=== PATIENT | female | born 1940 | race Caucasian/White ===

== ENCOUNTER → 2017-06-08 | Outpatient (CLI) | payer MEDICARE, BC ==
[~2017-06-08] MED LIST: HCTZ 25MG25 MG PO; PHENTERMINE PO; PRAVACHOL 40MG40 MG PO
== END ==
LOC: COL.RAD 07:20
DX: H05.20 Unspecified exophthalmos (principal); H02.409 Unspecified ptosis of unspecified eyelid

== ENCOUNTER 2019-05-25 11:15 | Emergency (ER) | payer MEDICARE, BC ==
[~2019-05-25] VITALS: Ht 162.6 cm; Wt 109.1 kg
[2019-05-25 11:28] VITALS: BP 124/59; TEMP 99.1
[2019-05-25] MEDS ORDERED: MEDROL 4MG DOSPA4 MG PO (11:34)
[2019-05-25] MEDS ORDERED: ATARAX 25MG25 MG/TAB PO ×2 (11:34→12:28)
[2019-05-25] MEDS ORDERED: WELLBUTRIN XL150 MG PO (11:34)
[2019-05-25] MEDS ORDERED: LIPITOR 40MG TA40 MG PO (12:00)
[2019-05-25] MEDS ORDERED: CALCIUM CARB W/1 TA1 PO (12:01)
[2019-05-25] MEDS ORDERED: LEVOXYL0.125 MG PO (12:02)
[2019-05-25] MEDS ORDERED: DESYREL 50MG50 MG PO (12:02)
[2019-05-25] MEDS ORDERED: AVAPRO TAB150 MG/TAB PO (12:02)
[2019-05-25 12:50] VITALS: PULSE 82
== END 2019-05-25 12:51 | disposition home or self-care (01) ==
LOC: COL.ER 11:15
DX: L50.9 Urticaria, unspecified (principal); F32.9 Major depressive disorder, single episode, unspecified; E78.5 Hyperlipidemia, unspecified; I10 Essential (primary) hypertension

== ENCOUNTER 2019-12-13 14:15 | Outpatient (RCR) | payer MEDICARE, BC ==
[~2019-12-13 14:15] MED LIST changes: +ATARAX 25MG25 MG/TAB PO; +AVAPRO TAB150 MG/TAB PO; +CALCIUM CARB W/1 TA1 PO; +DESYREL 50MG50 MG PO; +LEVOXYL0.125 MG PO; +LIPITOR 40MG TA40 MG PO; +MEDROL 4MG DOSPA4 MG PO; +WELLBUTRIN XL150 MG PO
== END 2020-01-26 | disposition home or self-care (01) ==
LOC: MKS.ESL.PT
DX: I89.0 Lymphedema, not elsewhere classified (principal)

== ENCOUNTER 2021-08-30 16:23 | Inpatient (IN) | payer MEDICARE, BC ==
[~2021-08-30] VITALS: Ht 160.1 cm; Wt 108.9 kg
[~2021-08-30 16:23] MED LIST changes: -ASPIRIN E.C. 8181 MG PO; -CIPRO 500MG TA500 MG PO; -CYMBALTA 30MG30 MG PO; -D3-5050000 IU PO; -DESYREL 100MG100 MG PO; -FLAGYL500 MG PO; -MOTRIN 200200 MG/TAB PO; -SYNTHROID 0.10.15 MG PO; -ZOFRAN 4MG T4 MG/TAB PO
[2021-08-30 17:00] VITALS: BP 118/61; PULSE 88; TEMP 98.7
--- NOTE | 2021-08-30 17:02 | NUR ---
admitted per WC to room 342, assisted into bed, full assessment completed, see interventions for further info, Dr Guerrero was in to see patient, will prep for surgery
[2021-08-30] MEDS ORDERED: SYNTHROID 0.10.15 MG PO (17:11)
[2021-08-30] MEDS ORDERED: ASPIRIN E.C. 8181 MG PO (17:13)
[2021-08-30] MEDS ORDERED: CYMBALTA 30MG30 MG PO (17:14)
[2021-08-30] MEDS ORDERED: MOTRIN 200200 MG/TAB PO (17:14)
[2021-08-30] MEDS ORDERED: AVAPRO TAB150 MG/TAB PO (17:15)
[2021-08-30] MEDS ORDERED: DESYREL 100MG100 MG PO (17:16)
[2021-08-30] MEDS ORDERED: ZOFRAN 4MG T4 MG/TAB PO (17:16)
[2021-08-30] MEDS ORDERED: D3-5050000 IU PO (17:17)
--- NOTE | 2021-08-30 17:35 | NUR ---
attempted to start IV without success, OR staff here to take patient to surgery, notified STORE SALES CONSULTANT of no IV
[2021-08-30 18:05] VITALS: BP 118/61; PULSE 88; TEMP 98.7
--- NOTE | 2021-08-30 18:47 | NUR ---
bedside shift report given to ASHLEE Clay
--- NOTE | 2021-08-30 22:59 | NUR ---
Pt to floor, room 342, at 2210. Pt A&Ox3, daughter at the beside, left shortly after pt arrival to room. Pt L central line, white port is being utilized well. Pt assessed, 3x sites with bandaids were observed, as well as midline dressing and JERRELL drain. Pt has not complaints of pain at this time, call light within reach.
[2021-08-31] VITALS (8 sets, daily range): BP systolic 93–123; BP diastolic 44–98; PULSE 76–85; TEMP 97.8–98.5
[2021-08-31 06:47] LABS: HEMOGLOBIN 11.4 g/dl (12.5-16.0); MEAN CELL VOLUME 84 fl (80.0-100.0); MEAN CORPUSCULAR HEMOGLOBIN 27 pg (27-31); MEAN CORPUSCULAR HGB CONC 32 g/dl (33.0-37.0); MEAN PLATELET VOLUME 10.8 fl (7.4-10.4); PLATELET COUNT 237 K/mm3 (130-400); RED BLOOD COUNT 4.31 M/mm3 (4.10-5.30); REDCELL DISTRIBUTION WIDTH-CV 14.6 % (11.5-14.5)
[2021-08-31 06:57] LABS: HEMATOCRIT 36.2 % (37.0-47.0)
[2021-08-31 07:02] LABS: CALCIUM 8.7 mg/dL (8.4-10.2); CREATININE, serum 0.7 mg/dL (0.57-1.11); POTASSIUM 4.2 mmol/L (3.5-4.5)
[2021-08-31 08:21] LABS: BAND 5 % (0-10); HYPOCHROMIA 1+; LYMPHOCYTE 3 % (20.0-51.0); NEUTROPHILS 89 % (42.0-75.2); PLATELET ESTIMATE NORMAL (NORMAL)
--- NOTE | 2021-08-31 09:02 | NUR ---
PT A&O X3, HOB ELEVATED. PT STATES THAT SHE IS HAVING SOME PAIN BUT DENIES NAUSEA, TOLERATING CLEAR LIQUIDS WELL. IVF INFUSING INTO TRIPLE LUMEN IN PT'S LEFT NECK. BANDAIDS ET GAUZE DRESSING CDI, JERERLL DRAIN WITH MINIMAL DRAINAGE, IS SEROUSANGUINEOUS. SHEARER CATHETER DRAINING DEPENDENTLY, URINE IS LIGHT DINESH ET CLEAR. SCDs ON BILATERAL LEGS. PT DENIES NEEDS. CALL LIGHT WITHIN REACH.
--- NOTE | 2021-08-31 09:49 | NUR ---
Children'S Lunchroom Supervisor met with patient to discuss discharge planning. Patient lives alone in [place] and reports her , Santino lives at [facility]. Patient states her daughter, Tg lives here in [place] and is a nurse for the [employer]. Patient sees Dr. Fraire for primary care and obtains medications from [facility] with no difficulties. Patient does not use any DME and reports independence with ADLS. Patient denies any current home health use. Patient does not have Advance Directives and is not interested in completing DPOA-HC form at this time, but will think about it. Patient plans to return home at time of discharge. Discharge Plan: Home
--- NOTE | 2021-08-31 12:45 | NUR ---
PT HAS BEEN ASSISTED TO BR ET BACK WITH 1 ASSIST, IS OCCASIONALLY UNSTEADY ET USES RAILS IN BR TO WALK. PT IS ABLE TO URINATE, IS DARK YELLOW ET CLEAR. PT STATES THAT SHE IS SOMETIMES INCONTINENT @ BASELINE BUT IS NOT THIS TIME. PT ENCOURAGED TO DRINK WATER, VERBALIZES UNDERSTANDING. PT DENIES FURTHER NEEDS. CALL LIGHT WITHIN REACH.
--- NOTE | 2021-08-31 12:56 | NUR ---
Donna: No advent preference Situation: Surface Miner stopped by on rounds Background: PT was very sleepy. Assessment: Family is bringing up a phone edge sander and some glasses for PT Recommendation: outreach professional will follow up as needed
--- NOTE | 2021-08-31 18:55 | NUR ---
PT SITTING UP IN BED, TALKING ON HER CELL PHONE, HAS FINISHED EATING DINNER. IVF INFUSING. JERRELL DRAIN TO BULB SUCTION, DRAINAGE IS SEROUSANGUINEOUS. PT HAS BEEN UP TO AMBULATE IN [place] X[place] THIS AFTERNOON, IS AGREEABLE TO WALK AGAIN FOR CONVERTIBLE SOFA BEDSPRING TESTER. GAIT IS STEADY ET PT HAS TOLERATED, HAS SOME SOB WITH ACTIVITY BUT RECOVERS QUICKLY. REPORT GIVEN TO NIGHT ASHLEE POLANCO.
[2021-09-01 00:32] VITALS: BP 124/47; PULSE 92; TEMP 98.5
[2021-09-01 05:06] VITALS: BP 119/55; PULSE 88; TEMP 99
[2021-09-01 06:26] LABS: HEMATOCRIT 38.9 % (37.0-47.0); HEMOGLOBIN 12.3 g/dl (12.5-16.0); MEAN CELL VOLUME 84 fl (80.0-100.0); MEAN CORPUSCULAR HEMOGLOBIN 27 pg (27-31); MEAN CORPUSCULAR HGB CONC 32 g/dl (33.0-37.0); MEAN PLATELET VOLUME 11.6 fl (7.4-10.4); PLATELET COUNT 297 K/mm3 (130-400); RED BLOOD COUNT 4.64 M/mm3 (4.10-5.30); REDCELL DISTRIBUTION WIDTH-CV 14.9 % (11.5-14.5)
[2021-09-01 07:02] VITALS: BP 124/67; PULSE 83; TEMP 98.4
[2021-09-01 07:15] LABS: BAND 6 % (0-10); LYMPHOCYTE 2 % (20.0-51.0); NEUTROPHILS 90 % (42.0-75.2); PLATELET ESTIMATE NORMAL (NORMAL)
--- NOTE | 2021-09-01 07:26 | NUR ---
IVF HAS BEEN DCED, TRIPLE LUMEN TO PT'S LEFT NECK SALINE LOCKED. PT HAS BEEN HAVING INTERMITTENT INCONTINENCE, STATES THAT SHE DOES THAT @ HOME ALSO BUT THAT IT HAS BEEN MORE FREQUENT OVERNIGHT. PT IS ALSO HAVING SOME INTERMITTENT NAUSEA THAT SHE STATES IS EXACERBATES BY BURPING, IS ALSO HAVING FLATULENCE. PT RATES ABDOMINAL PAIN @ A 2. PT REFUSING BREAKFAST @ THIS TIME. JERRELL DRAIN TO PT'S MEDIAL ABDOMEN DISCONTINUED, HAS HAD MINIMAL SEROUS DRAINAGE WITH A BLOOD CLOT SEEN IN THE BULB. GAUZE ET TEGADERM DRESSING HAS BEEN APPLIED TO SITE. PT DENIES NEEDS. RESTS IN BED WITH EYES CLOSED, RESPIRATIONS UNLABORED. CALL LIGHT WITHIN REACH.
--- NOTE | 2021-09-01 09:24 | NUR ---
PT SLEEPING IN BED, IV FLAGYL INFUSING THROUGH LEFT IJ TRIPLE LUMEN. PT'S GRANDDAUGHTER HAS BEEN @ BEDSIDE, QUESTIONS ANSWERED PER PT REQUEST. PT STATES THAT SHE IS STILL NAUSEOUS BUT PAIN IS MINIMAL.
--- NOTE | 2021-09-01 10:14 | NUR ---
PT SLEEPS INTERMITTENTLY, STATES THAT SHE IS STILL HAVING NAUSEA BUT PAIN IS MINIMAL. ZOFRAN IV ADMINISTERED.
--- NOTE | 2021-09-01 11:02 | NUR ---
Faculty Neuropsychologist collaborated with RN about ordering PT/OT for patient.
[2021-09-01 11:13] VITALS: BP 150/63; PULSE 86; TEMP 98.4
--- NOTE | 2021-09-01 11:23 | NUR ---
PT'S PO MEDICATIONS GIVEN LATE R/T NAUSEA. PT STATES THAT NAUSEA HAS IMPROVED BUT NOT RESOLVED, IS NOT HUNGRY AT ALL. PT HAS NOT BEEN DRINKING A LOT, ENCOURAGED TO DRINK MORE, VERBALIZES UNDERSTANDING. PT STATES THE ICE CHIPS ARE EASIER TO TAKE IN THAN WATER, IS GIVEN FRESH ICE.
--- NOTE | 2021-09-01 12:15 | NUR ---
PT HAS NOT YET BEEN UP TO THE BR FOR THIS SHIFT. PT IS ASSISTED WITH SBA INTO BR ET IS ABLE TO URINATE. URINE IS DINESH ET CLEAR. DRESSING OVER PREVIOUS JERRELL DRAIN SITE IS SATURATED WITH SEROUS FLUID. GAUZE ET TEGADERM DRESSING IS REPLACED. PT ASSISTED BACK TO BED, BECOMES NAUSEOUS ET HAS A SMALL AMOUNT OF GREEN/BROWN EMESIS. PT'S GOWN ET LINENS CHANGED. HOB ELEVATED. PT REPORTS FLATULENCE. STATES THAT SHE IS ALSO BURPING FREQUENTLY.
--- NOTE | 2021-09-01 12:32 | NUR ---
DR. MCINTOSH NOTIFIED OF PT CONDITION. NEW VERBAL ORDERS RECEIVED TO KEEP PT ON CLEAR LIQUIDS FOR NOW ET TO RE-START IVF.
[2021-09-01 15:25] VITALS: BP 136/71; PULSE 88; TEMP 98
--- NOTE | 2021-09-01 15:50 | NUR ---
PT ALERT @ THIS TIME, FAMILY @ BEDSIDE. PT'S DAUGHTER STATES THAT PT HAS BEEN UP TO THE BR X1 WITH HER ET URINATED. IVF INFUSING BUT PT DOES NOT APPEAR TO HAVE HAD MUCH TO DRINK. PT STATES THAT SHE IS BEGINNING TO HAVE MORE ABDOMINAL PAIN, MORPHINE IV ADMINISTERED. THE GAUZE DRESSING OVER PT'S FORMER DRAIN SITE IS SATURATED WITH YELLOW SEROUS DRAINAGE. DRESSING IS CHANGED.
--- NOTE | 2021-09-01 19:10 | NUR ---
RECEIVED CHANGE OF SHIFT REPORT FROM DAY SHIFT RN.
[2021-09-01 20:41] VITALS: BP 137/53; PULSE 92; TEMP 98
--- NOTE | 2021-09-01 21:30 | NUR ---
DRSG TO PREV JERRELL DRAIN SITE CHANGED, SATURATED WITH SEROUS DRAINAGE, NO ODOR OBSERVED, NO ACTIVE DRAINAGE AT TIME OF DRSG CHANGE. NO REDNESS TO DRAIN SITE. APPLIED CLEAN/DRY [id number] WITH TEGADERM, PATIENT TOLERATED DRSG CHANGE WITH NO C/O PAIN OR DISCOMFORT.
--- NOTE | 2021-09-01 23:37 | NUR ---
PATIENT REPORTS SLIGHT URGE TO VOID BUT NO STRONG ENOUGH YET TO GET UP AND ATTEMPT TO VOID IN BATHROOM AT THIS TIME. STATES SHE WILL CALL FOR HELP WHEN SHE IS READY TO GET UP TO GO TO BATHROOM TO VOID. DENIES ANY OTHER NEEDS AT THIS TIME.
[2021-09-02] VITALS (7 sets, daily range): BP systolic 114–152; BP diastolic 52–83; PULSE 78–94; TEMP 97.8–98.5
--- NOTE | 2021-09-02 04:28 | NUR ---
DRSG CHANGE OF OLD JERRELL DRAIN SITE, ABOVE UMBILICUS, SATURATED WITH SEROUS NONODOROUS DRAINAGE WITH SCANT LIGHT PINK COLORING TO DRSG NEXT TO DRAIN SITE. PATIENT TOLERATED DRSG CHANGE, DENIES PAIN OR DISCOMFORT WITH PALPATION TO DRAIN SITE. FOLDED GAUZE (DOWN TO 2X2 SIZE) TO DRAIN SITE THEN COVERED WITH LARGE TEGADERM. NO OTHER NEEDS REPORTED.
--- NOTE | 2021-09-02 06:00 | NUR ---
OBSERVED SCD ON FOR MOST OF NIGHT, PATIENT REPORTING SCD "MADE ME HOT".
[2021-09-02 06:42] LABS: BASO # 0.1 K/mm3 (0.0-0.2); BASO % 0.3 % (0.0-2.0); EOS # 0.1 K/mm3 (0.0-0.7); EOS % 0.8 % (0.0-4.0); GRAN # 12.5 K/mm3 (1.4-6.5); GRAN % 83.9 % (42.2-75.2); HEMOGLOBIN 11.3 g/dl (12.5-16.0); LYMPH # 1.2 K/mm3 (1.2-3.4); LYMPH % 7.9 % (20.0-51.0); MEAN CELL VOLUME 87 fl (80.0-100.0); MEAN CORPUSCULAR HEMOGLOBIN 27 pg (27-31); MEAN CORPUSCULAR HGB CONC 31 g/dl (33.0-37.0); MEAN PLATELET VOLUME 10.9 fl (7.4-10.4); MONO % 6.6 % (1.7-9.3); PLATELET COUNT 285 K/mm3 (130-400); RED BLOOD COUNT 4.21 M/mm3 (4.10-5.30); REDCELL DISTRIBUTION WIDTH-CV 14.8 % (11.5-14.5)
[2021-09-02 06:45] LABS: HEMATOCRIT 36.8 % (37.0-47.0)
[2021-09-02 06:58] LABS: CALCIUM 8.2 mg/dL (8.4-10.2); CREATININE, serum 0.66 mg/dL (0.57-1.11)
--- NOTE | 2021-09-02 07:01 | NUR ---
CHANGE OF SHIFT REPORT GIVEN TO DAY SHIFT RNRACHEL.
--- NOTE | 2021-09-02 09:43 | NUR ---
PT STATES THAT SHE IS FEELING IMPROVED TODAY, DENYING PAIN OR NAUSEA @ THIS TIME. PT WORKED WITH THERAPY THIS MORNING. GAUZE DRESSING OVER PREVIOUS JERRELL SITE HAS BEEN CHANGED X2, SATURATED WITH YELLOW CLEAR DRAINAGE EACH TIME. DRAINAGE HAS NO ODOR. IVF INFUSING. PT REQUESTS ONLY ORANGE JUICE, DENIES HUNGER.
--- NOTE | 2021-09-02 13:28 | NUR ---
CLARIFIED WITH PT THAT SHE HAS TAKEN TYLENOL IN THE PAST WITH NO PROBLEMS OR ADVERSE REACTION. PT STATES SHE HAS HAD PROBLEMS WITH PERCOCET WHICH IS THE REASON FOR TYLENOL BEING LISTED AN ALLERGY.
--- NOTE | 2021-09-02 17:42 | NUR ---
PT CURRENTLY ON PHONE WITH KITCHEN, IS ORDERING FRUIT TO EAT, STILL DOES NOT HAVE MUCH OF AN APPETITE. PT HAS BEEN UP TO AMBULATE IN [facility] ET USE BR. GAUZE DRESSING OVER PRIOR DRAIN SITE IS SATURATED WITH SEROUS YELLOW DRAINAGE. NEW DRESSING APPLIED. SKIN SURROUNDING SITE IS PINK BUT PT DENIES ANY PAIN OR NAUSEA. RESPIRATIONS UNLABORED ON RA. CALL LIGHT WITHIN REACH.
--- NOTE | 2021-09-02 19:00 | NUR ---
RECEIVED CHANGE OF SHIFT REPORT FROM DAY SHIFT RN.
--- NOTE | 2021-09-02 20:30 | NUR ---
CHANGE DRSG TO OLD JERRELL DRAIN SITE, ABOVE UMBILICUS, EDGES CLEAR, NO REDNESS AROUND DRAIN SITE. OLD DRSG SATURATED WITH SEROUS DRAINAGE, NO FOUL ODOR OBSERVED, PATIENT TOLERATED DRSG CHANGE WITH NO REPORTED DISCOMFORT. APPLIED DRY FOLDED 4X4 (FOLDED DOWN TO 2X2) APPLIED TEGADERM WITH 1 STRIP FOAM TAPE ACROSS BOTTOM OF TEGADERM FOR ADDITIONAL SUPPORT.
--- NOTE | 2021-09-03 01:28 | NUR ---
DRSG TO DRAIN SITE SATURATED WITH LIGHT YELLOW DRAINAGE, NO ODOR OBSERVED WITH DRSG CHANGE. APPLIED FOLDED 4X4 (DOWN TO 2X2) GAUZE TO DRAIN SITE, COVERED WITH QUARTER FOLDED ABD PAD AND COVERED WITH LARGE TEGADERM AND FOAM TAPE ACROSS LOWER/RIGHT & LEFT EDGES OF TEGADERM. PATIENT WITH NO FURTHER COMPLAINTS REPORTED.
[2021-09-03 04:07] VITALS: BP 134/62; PULSE 82; TEMP 98
--- NOTE | 2021-09-03 07:12 | NUR ---
CHANGE OF SHIFT REPORT GIVEN TO DAY SHIFT RNELENO.
[2021-09-03 08:07] VITALS: BP 115/65; PULSE 80; TEMP 98.4
--- NOTE | 2021-09-03 08:57 | NUR ---
Received report from shift supervisor melting. Patient alert and oriented x4. VSS. Assessment performed. AM meds administered. LIJ flushes well with good blood return. NS running at 100. Surgical sites x3. Two with bandaid, CDI. One apryl-umbilical with excessive drainage. Applied ostomy bag to collect drainage and decrease dressing changes. Patient ambulated with PT this AM. Patient denies any pain at this time. Call light within reach.
[2021-09-03 11:39] VITALS: BP 122/65; PULSE 85; TEMP 97.7
--- NOTE | 2021-09-03 14:08 | NUR ---
Gear Lapper met with patient to review discharge plan. Patient states she is going home this afternoon and has no concerns with doing so. Patient advised one of her children will pick her up today. SW presented and reviewed IM form with patient who verbalized understanding and provided signature. SW placed form in chart and provided copy to patient.
[2021-09-03] MEDS ORDERED: CIPRO 500MG TA500 MG PO (16:03)
[2021-09-03] MEDS ORDERED: FLAGYL500 MG PO (16:03)
--- NOTE | 2021-09-03 16:55 | NUR ---
L IJ CENTRAL LINE REMOVED AT THIS TIME, PRESSURE HELD, PT CURRENTLY LAYING FLAT. DISCHARGE INSTRUCTIONS GIVEN, ALL QUESTIONS ANSWERED. WILL CONTINUE TO MONITOR.
--- NOTE | 2021-09-03 17:18 | NUR ---
PT ESCORTED DOWN TO VEHICLE WITH BELONGINGS AT THIS TIME. WILL D/C FROM SYSTEM.
== END 2021-09-03 17:19 | disposition home or self-care (01) | DRG 336 ==
LOC: SURG 16:23 → EDSTATUS 17:30 → SDCO 17:30 → SURG 09-03 17:19
PROVIDERS: ADMIT Surgery
PROC: 0DN84ZZ Release Small Intestine, Percutaneous Endoscopic Approach (ICD-10-PCS; 2021-08-30)
PROC: 0DNW4ZZ Release Peritoneum, Percutaneous Endoscopic Approach (ICD-10-PCS; 2021-08-30)
PROC: 05HN33Z Insertion of Infusion Device into Left Internal Jugular Vein, Percutaneous Approach (ICD-10-PCS; 2021-08-30)
PROC: 0DNU4ZZ Release Omentum, Percutaneous Endoscopic Approach (ICD-10-PCS; principal; 2021-08-30 17:30)
PROC: 0W9G40Z Drainage of Peritoneal Cavity with Drainage Device, Percutaneous Endoscopic Approach (ICD-10-PCS; 2021-08-30 17:30)
DX: K35.33 Acute appendicitis with perforation, localized peritonitis, and gangrene, with abscess (principal); Z68.41 Body mass index [BMI] 40.0-44.9, adult; I10 Essential (primary) hypertension; E66.9 Obesity, unspecified; E03.9 Hypothyroidism, unspecified; K66.0 Peritoneal adhesions (postprocedural) (postinfection); E78.5 Hyperlipidemia, unspecified; Z88.0 Allergy status to penicillin; Z90.710 Acquired absence of both cervix and uterus; Z23 Encounter for immunization
CPT/HCPCS: A4314; C1751; J0330; J0690; J0696; J1100; J2270; J2405; J2704; J3010; J7030; J7120

== ENCOUNTER → 2021-08-30 | Outpatient (CLI) | payer MEDICARE, BC ==
[~2021-08-30] MED LIST changes: +ASPIRIN E.C. 8181 MG PO; +CIPRO 500MG TA500 MG PO; +CYMBALTA 30MG30 MG PO; +D3-5050000 IU PO; +DESYREL 100MG100 MG PO; +FLAGYL500 MG PO; +MOTRIN 200200 MG/TAB PO; +SYNTHROID 0.10.15 MG PO; +ZOFRAN 4MG T4 MG/TAB PO
== END ==
LOC: COL.RAD 14:04
DX: R10.9 Unspecified abdominal pain (principal); D72.829 Elevated white blood cell count, unspecified
CPT/HCPCS: Q9967

== ENCOUNTER 2023-03-09 13:54 | Outpatient (CLI) | payer MEDICARE, BC ==
[~2023-03-09] VITALS: Ht 160 cm; Wt 114.2 kg
[~2023-03-09 13:54] MED LIST changes: +ASPI325T6 PO; +CIPRO 500MG TA500 MG PO; +CYMBALTA 30MG30 MG PO; +D3-5050000 IU PO; +DESYREL 100MG100 MG PO; +FLAGYL500 MG PO; +MOTRIN 200200 MG/TAB PO; +SYNTHROID 0.10.15 MG PO; +ZOFRAN 4MG T4 MG/TAB PO
[2023-03-09 14:10] VITALS: BP 130/78; PULSE 71; TEMP 98.2
[2023-03-09] MEDS ORDERED: PRESERVISION1 SGL PO (14:16)
[2023-03-09] MEDS ORDERED: CALCIUM 600MG+D1 TAB PO (14:16)
[2023-03-09] MEDS ORDERED: PROLIA60 MG/ML SQ (14:16)
--- NOTE | 2023-03-09 14:19 | NUR ---
Pt tolerated prolia without issue. She exits dept with steady gait, free of complaints at time of discharge.
== END 2023-03-09 14:19 | disposition home or self-care (01) ==
LOC: EUO 13:54
DX: M81.0 Age-related osteoporosis without current pathological fracture (principal)
CPT/HCPCS: J0897